=== PATIENT | female | born 1985 | race Caucasian/White ===

== ENCOUNTER 2021-02-11 10:09 | Emergency (ER) | payer MEDICAID, SELFPAY ==
[2021-02-11 10:15] VITALS: BP 122/85; PULSE 83; RESP 18; TEMP 36.8; O2SAT 99; BMI 21.7
--- NOTE | 2021-02-11 10:52 | CT_ITS ---
WS: [id number] CT ABDOMEN PELVIS TECHNIQUE: Contrast-enhanced CT of the abdomen and pelvis with coronal and sagittal reformatted image s. CLINICAL INFORMATION: right side abdominal pain with nausea COMPARISON: None. DLP: 771.[address] scans at [facility] use at least one of these dose optimization techniques: automat ed exposure control; mA and/or kV adjustment per patient size (includes targeted exams where dose is matched to clinical indication); or iterative reconstruction. FINDINGS: Lung bases are well aerated. Mild diffuse fatty infiltration of the liver. Normal portal vein and spl enic vein. Normal gallbladder. Normal spleen. Normal GE junction. Normal pancreas. Adrenal glands are normal. Normal renal parenchymal enhancement. No hydronephrosis. Urine distended bladder. No abdominal or pelvic lymphadenopathy. Small bilateral ovarian follicles wi th peripheral enhancing left corpus luteum cyst measuring 1.5 CM. Normal sigmoid colon. No evidence o f small or large bowel obstruction. Small fat-containing umbilical hernia. CT/CT abdomen pelvis w con* [id number] IMPRESSION: 1. Prior postoperative hysterectomy and appendectomy. 2. Multifollicular ovaries bilaterally. 1.5 cm peripheral enhancing left corpu s luteum cyst. 3. Tiny amount of free fluid in the pelvis. 4. Mild diffuse fatty infiltration the liver. No hydronephrosis. 5. Normal caliber abdominal aorta. 6. No other significant findings.
--- NOTE | 2021-02-11 10:56 | ED_ITS ---
HPI - General Adult General: Chief complaint: General Medical Stated complaint: Pains in Right Side of ABD, Cough, Sore Throat Time Seen by Provider: 02/11/21 10:22 History of Present Illness: HPI narrative: Patient is a 35-year-old female comes to the ED with right sided abdominal pain. Patient says symptoms started 3 days ago. Patient is currently at [facility] getting treatment and she was seen by one of the treatment facility physicians and they wanted patient to come to the ED for some labs and abdominal imaging. Patient says she has had nausea and vomited once since the start of symptoms. Denies any diarrhea or constipation. Her abdominal pain is on the right side and radiates around to her right lower back. She rates her pain a 7 out of 10. She says the symptoms to get worse after she eats. Associated symptoms: Deny chest pain, dyspnea, headache(s), nausea, rash, palpitations or vomiting Review of Systems Const: Reports: change in appetite (decreased); Denies: fever(s), chills or fatigue Eyes: Denies: change in vision or eye discomfort ENMT: Denies: throat pain, odynophagia, nasal discharge or nasal congestion Card: Denies: chest pain, palpitations, edema, swelling of feet/ankles, dyspnea on exertion or orthopnea Resp: Denies: dyspnea, productive cough or non-productive cough GI: Reports: abdominal pain; Denies: nausea, vomiting, diarrhea, constipation or hematochezia : Reports: flank pain; Denies: dysuria or hematuria Musc: Denies: neck pain, back pain or extremity swelling Skin/Breast: Denies: rash or new lesions Neuro: Denies: headache(s), numbness in extremities or weakness in extremities Physical Exam Const: COMMON NORMALS: no acute distress, patient oriented x3 and alert GENERAL APPEARANCE: cooperative and comfortable HENMT: COMMON NORMALS: normocephalic HEAD & SCALP: normocephalic MOUTH: Normal oral and palatal mucosa present THROAT: posterior oropharynx normal and uvula midline Neck/C-Spine: COMMON NORMALS: supple GENERAL: Yes normal visual inspection Resp: COMMON NORMALS: normal respiratory effort, No retractions, No use of accessory muscles and clear to auscultation bilaterally AUSCULTATION: clear to auscultation bilaterally Cardio: COMMON NORMALS: regular rate, regular rhythm, S1 normal heart sound present, S2 normal heart sound present, No gallops present (Cardio), No clicks present (Cardio), No murmurs present (Cardio) and Peripheral pulses 2+ throughout RATE: regular rate RHYTHM: regular rhythm HEART SOUNDS: S1 normal heart sound present and S2 normal heart sound present PERIPHERAL PULSES: Peripheral pulses 2+ throughout GI: COMMON NORMALS: Normal to inspection, nondistended, normoactive bowel sounds present, Soft to palpation and no masses PALPATION: Yes Soft to palpation and Yes Tenderness to palpation present (GI) (Patient has generalized tenderness of right upper and right lower quadrant ) Details: RLQ and RUQ : BLADDER/KIDNEY EXAM: Yes CVA tenderness Back/Pelvis: GENERAL BACK: Yes CVA tenderness CVA tenderness: right Extremity: COMMON NORMALS: normal to inspection Neuro: COMMON NORMALS: patient oriented x3 and moves all extremities SENSORIUM/ORIENTATION: Yes alert Skin: GENERAL SKIN EXAM: dry skin Course Vital Signs: Vital signs: Vital Signs Temperature 98.2 F 02/11/21 10:15 Pulse Rate 73 02/11/21 13:03 Respiratory Rate 14 02/11/21 13:09 Blood Pressure 119/93 02/11/21 13:03 Pulse Oximetry 100 02/11/21 13:09 MDM - General Adult MDM Narrative: Medical decision making narrative: Patient is a 35-year-old female comes to the ED with right sided abdominal pain. Patient appears nontoxic and in no acute distress. Is some mild generalized tenderness of the right side of her abdomen. Labs were unremarkable. CT of abdomen pelvis showed no acute findings. Patient was given IV fluids, Reglan and IV pain meds and her symptoms were controlled. Patient was diagnosed with abdominal pain and discharged home with a prescription for Reglan. Return to ED precautions given. Follow-up with PCP in 7 to 10 days for reevaluation. Patient understood agree with plan. Lab Data: Attestation: I reviewed the patient's lab results. Labs: Lab Results 02/11/21 02/11/21 02/11/21 Range/Units 10:44 10:44 10:44 WBC 7.2 (4.0-10.0) 10^3/ uL RBC 4.03 L (4.1-5.3) 10^6/u L Hgb 12.6 (11.5-15.3) g/dL Hct 39.0 (37.0-47.0) % MCV 96.8 (81-99) fL MCH 31.3 (28.0-34.0) pg MCHC 32.3 (30.0-36.0) g/dL RDW 12.9 (12.1-15.1) % Plt Count 250 (130-400) 10^3/c mm MPV 10.1 (7.4-10.4) fL Neut % (Auto) 66.6 % Lymph % (Auto) 22.5 % [place] % (Auto) 7.7 % Eos % (Auto) 2.2 % Baso % (Auto) 0.6 % Neut # (Auto) 4.78 (1.8-7.7) 10^3/u L Lymph # (Auto) 1.6 (0.8-4.8) 10^3/u L [place] # (Auto) 0.6 (0.2-0.9) 10^3/u L Eos # (Auto) 0.2 (0.0-0.8) 10^3/u L Baso # (Auto) 0.0 (0.0-0.1) 10^3/u L Nucleated RBC % (a uto) 0 % Nucleated RBCs # 0.0 /100WBC Sodium 137 (136-145) mmol/L Potassium 4.3 (3.5-5.1) mmol/L Chloride 102 (98-107) mmol/L Carbon Dioxide 27 (22-29) mmol/L Anion Gap 12.3 (5-19) BUN 15 (6-20) mg/dL Creatinine 0.6 (0.5-0.9) mg/dL GFR Calculation 113.8 (90-130) mL/min Glucose 76 (65-115) mg/dL Calculated Osmolal ity 284 L (285-295) mOsm/k g Calcium 8.9 (8.5-10.5) mg/dL Total Bilirubin 0.3 (0.15-1.2) mg/dL AST 79 H (0-32) U/L ALT 197 H (0-33) U/L Alkaline Phosphata se 66 (35-105) IU/L Total Protein 7.2 (6.6-8.7) g/dL Albumin 4.2 (3.5-5.2) g/dL Globulin 3.0 (1.3-4.6) g/dL Lipase 22 (13-60) U/L HCG, Qual Negative (Negative) Urine Color (Yellow) Urine Appearance (CLEAR) Urine pH (5-7) Ur Specific Gravit y (1.005-1.030) Urine Protein (Negative) Urine Glucose (UA) (Normal) Urine Ketones (Negative) Urine Blood (Negative) Urine Nitrate (Negative) Urine Bilirubin (Negative) Urine Urobilinogen (Negative) mg/dL Ur Leukocyte Sherice ase (Negative) Urine RBC (0-2) /hpf Urine WBC (0-5) /hpf Ur Squamous Epith Cells (0-5) /hpf Amorphous Sediment Urine Bacteria (NONE) /hpf Hepatitis A IgM Ab (Nonreactive) Hep Bs Antigen (Nonreactive) Hep Bs Antibody (11.5-1000) Hep B Core Total A b (Nonreactive) Hepatitis C Antibo dy (Nonreactive) 02/11/21 02/11/21 Range/Units 10:44 10:50 WBC (4.0-10.0) 10^3/ uL RBC (4.1-5.3) 10^6/u L Hgb (11.5-15.3) g/dL Hct (37.0-47.0) % MCV (81-99) fL MCH (28.0-34.0) pg MCHC (30.0-36.0) g/dL RDW (12.1-15.1) % Plt Count (130-400) 10^3/c mm MPV (7.4-10.4) fL Neut % (Auto) % Lymph % (Auto) % [place] % (Auto) % Eos % (Auto) % Baso % (Auto) % Neut # (Auto) (1.8-7.7) 10^3/u L Lymph # (Auto) (0.8-4.8) 10^3/u L [place] # (Auto) (0.2-0.9) 10^3/u L Eos # (Auto) (0.0-0.8) 10^3/u L Baso # (Auto) (0.0-0.1) 10^3/u L Nucleated RBC % (a uto) % Nucleated RBCs # /100WBC Sodium (136-145) mmol/L Potassium (3.5-5.1) mmol/L Chloride (98-107) mmol/L Carbon Dioxide (22-29) mmol/L Anion Gap (5-19) BUN (6-20) mg/dL Creatinine (0.5-0.9) mg/dL GFR Calculation (90-130) mL/min Glucose (65-115) mg/dL Calculated Osmolal ity (285-295) mOsm/k g Calcium (8.5-10.5) mg/dL Total Bilirubin (0.15-1.2) mg/dL AST (0-32) U/L ALT (0-33) U/L Alkaline Phosphata se (35-105) IU/L Total Protein (6.6-8.7) g/dL Albumin (3.5-5.2) g/dL Globulin (1.3-4.6) g/dL Lipase (13-60) U/L HCG, Qual (Negative) Urine Color Yellow (Yellow) Urine Appearance Clear (CLEAR) Urine pH 6 (5-7) Ur Specific Gravit y 1.015 (1.005-1.030) Urine Protein Neg (Negative) Urine Glucose (UA) Norm (Normal) Urine Ketones Negative (Negative) Urine Blood Neg (Negative) Urine Nitrate Negative (Negative) Urine Bilirubin Neg (Negative) Urine Urobilinogen Norm (Negative) mg/dL Ur Leukocyte Sherice ase Negative (Negative) Urine RBC None (0-2) /hpf Urine WBC None (0-5) /hpf Ur Squamous Epith Cells 0-4 H (0-5) /hpf Amorphous Sediment Not Reportable Urine Bacteria None (NONE) /hpf Hepatitis A IgM Ab Non-reactive (Nonreactive) Hep Bs Antigen Non-reactive (Nonreactive) Hep Bs Antibody 3.5 L (11.5-1000) Hep B Core Total A b Non-reactive (Nonreactive) Hepatitis C Antibo dy Reactive H (Nonreactive) Imaging Data^: CT Abd/Pel: Attestation: I personally reviewed and interpreted this imaging study as follows: Radiologist's impression: [address] [address] [address] Scan Report Signed Patient: Constance Cox Unit #: [id number] : 1985 Age/Sex: 35 / F ADM Date: 02/11/21 Loc: ER Room/Bed: Attending Dr: Ordering Provider/Ordering MD: Kimo Appiah Date of Service: 02/11/21 Procedure(s): CT abdomen pelvis w con* [id number] Accession Number(s): [id number] Report Number: [id number] WS: [id number] CT ABDOMEN PELVIS TECHNIQUE: Contrast-enhanced CT of the abdomen and pelvis with coronal and sagittal reformatted images. CLINICAL INFORMATION: right side abdominal pain with nausea COMPARISON: None. DLP: 771.[address] scans at [facility] use at least one of these dose optimization techniques: automated exposure control; mA and/or kV adjustment per patient size (includes targeted exams where dose is matched to clinical indication); or iterative reconstruction. FINDINGS: Lung bases are well aerated. Mild diffuse fatty infiltration of the liver. Normal portal vein and splenic vein. Normal gallbladder. Normal spleen. Normal GE junction. Normal pancreas. Adrenal glands are normal. Normal renal parenchymal enhancement. No hydronephrosis. Urine distended bladder. No abdominal or pelvic lymphadenopathy. Small bilateral ovarian follicles with peripheral enhancing left corpus luteum cyst measuring 1.5 CM. Normal sigmoid colon. No evidence of small or large bowel obstruction. Small fat-containing umbilical hernia. CT/CT abdomen pelvis w con* [id number] IMPRESSION: 1. Prior postoperative hysterectomy and appendectomy. 2. Multifollicular ovaries bilaterally. 1.5 cm peripheral enhancing left corpus luteum cyst. 3. Tiny amount of free fluid in the pelvis. 4. Mild diffuse fatty infiltration the liver. No hydronephrosis. 5. Normal caliber abdominal aorta. 6. No other significant findings. Dictated By: Tyler Kline MD Signed By: Tyler Kline MD Signed Date/Time: 02/11/21 1222 DD/ 1211 Discharge Plan Discharge Patient Disposition: Home Clinical Impression: Abdominal pain Qualifiers: Abdominal location: right lower quadrant Qualified Code(s): R10.31 - Right lower quadrant pain Condition: Stable Prescriptions: New Reglan 10 mg tablet 10 mg PO Q6H PRN (Reason: nausea and vomiting) Qty: 20 RF: 0 Discharge Orders: Discharge ED (Routine); Ordered 02/11/21 Ordered By: Kimo Appiah Discharge Diet: Advance as tolerated and Clear Liquid Discharge Activity: Increase activity as tolerated Patient Instructions: Abdominal Pain (ED) Activity Restrictions/Additional Instructions: Follow-up with medical provider as directed. Take medications as prescribed. Return to the ER or your medical provider if condition worsens. Please read and understand discharge instructions. Thank you for choosing [facility] for your healthcare needs today. Please realize this is an emergency room and that we are providing you with a medical screening exam and this may not be complete and all inclusive of all the testing and or work up that you may need to determine your ailment or severity of your illness. It is very important that you follow up as instructed or that you return to the Emergency Department should you have concerns or if your condition changes or worsens in any way. Coding Level of Care Code ED [employer] for Uday Bryant Exam Comprehensive
[2021-02-11 11:06] LABS: Basophils % 0.6 %; Eosinophils # 0.2 10^3/uL (0.0-0.8); Eosinophils % 2.2 %; Hemoglobin 12.6 g/dL (11.5-15.3); Lymphocytes # 1.6 10^3/uL (0.8-4.8); Lymphocytes % 22.5 %; Mean Corpuscular HGB Conc 32.3 g/dL (30.0-36.0); Mean Corpuscular Hemoglobin 31.3 pg (28.0-34.0); Mean Corpuscular Volume 96.8 fL (81-99); Mean Platelet Volume 10.1 fL (7.4-10.4); Monocytes # 0.6 10^3/uL (0.2-0.9); Monocytes % 7.7 %; Neutrophils # 4.78 10^3/uL (1.8-7.7); Neutrophils % 66.6 %; Nucleated Red Blood Cells % 0 %; Platelet Count 250 10^3/cmm (130-400); Red Blood Count 4.03 10^6/uL (4.1-5.3); Red Cell Distribution Width 12.9 % (12.1-15.1); White Blood Count 7.2 10^3/uL (4.0-10.0)
[2021-02-11 11:13] LABS: HCG, Serum Qual Negative (Negative)
[2021-02-11 11:16] LABS: Bilirubin Urine Neg (Negative); Blood Urine Neg (Negative); Glucose Urine UA Norm (Normal); Ketones Urine Negative (Negative); Leukocyte Esterase Urine Negative (Negative); Nitrate Urine Negative (Negative); Protein Urine Neg (Negative); Specific Gravity, Urine 1.015 (1.005-1.030); Urine Appearance Clear (CLEAR); Urine Color Yellow (Yellow); Urobilinogen Urine Norm (Negative); pH Urine 6 (5-7)
[2021-02-11 11:20] LABS: Add Urine Culture? No; Squamous Epithelial Cell Urine 0-4 /hpf (0-5)
[2021-02-11 11:26] LABS: Alanine Aminotransferase 197 U/L (0-33); Albumin Level 4.2 g/dL (3.5-5.2); Alkaline Phosphatase 66 IU/L (35-105); Anion Gap 12.3 (5-19); Aspartate Amino Transferase 79 U/L (0-32); Blood Urea Nitrogen 15 mg/dL (6-20); Calcium 8.9 mg/dL (8.5-10.5); Carbon Dioxide 27 mmol/L (22-29); Chloride 102 mmol/L (98-107); Glomerular Filtration Rate 113.8 mL/min (90-130); Glucose 76 mg/dL (65-115); Lipase 22 U/L (13-60); Osmolality Calculated 284 mOsm/kg (285-295); Potassium 4.3 mmol/L (3.5-5.1); Sodium 137 mmol/L (136-145); Total Bilirubin 0.3 mg/dL (0.15-1.2); Total Protein 7.2 g/dL (6.6-8.7)
[2021-02-11] MEDS: sodium chloride 0.9% 1,000 ML 999 ML IV (11:33)
[2021-02-11 11:35] VITALS: RESP 16; O2SAT 100
[2021-02-11] MEDS: morphine 4 mg/mL SDV 1 mL IVP (11:35)
[2021-02-11] MEDS: ondansetron 2 mg/ML SDV 2 mL 4 MG IVP (11:35)
[2021-02-11 11:37] VITALS: BP 137/93; PULSE 83; RESP 14; O2SAT 100
[2021-02-11] MEDS: iohexol 300 mg/mL 100 mL Btl IV (12:07)
[2021-02-11 13:03] VITALS: BP 119/93; PULSE 73; RESP 14; O2SAT 100
[2021-02-11 13:04] LABS: Hepatitis A Antibody IgM Non-Reactive (Nonreactive); Hepatitis B Core AB, Total Non-Reactive (Nonreactive); Hepatitis B Surface AB 3.5 (11.5-1000); Hepatitis B Surface Antigen Non-Reactive (Nonreactive); Hepatitis C Virus Antibody Reactive (Nonreactive)
[2021-02-11 13:09] VITALS: RESP 14; O2SAT 100
[2021-02-11] MEDS: HYDROmorphone 1 mg/mL INJ 1 mL IVP (13:09)
[2021-02-11] MEDS: metoclopramide 5 mg/mL SDV 2 mL 10 MG IVP (13:10)
== END 2021-02-11 13:31 | disposition home or self-care (01) ==
PROVIDERS: Emergency Provider Physician Assistant
DX: R10.31 Right lower quadrant pain (principal)
CPT/HCPCS: 74177; 80053; 81001; 83690; 84703; 85025; 86705; 86706; 86709; 86803; 87340; 96361; 96374; 96375; 99284; J1170; J2270; J2405; J2765; J7030; Q9967

== ENCOUNTER 2021-02-12 22:57 | Emergency (ER) | payer MEDICAID, SELFPAY ==
[2021-02-12 22:59] VITALS: BP 113/73; PULSE 90; RESP 14; TEMP 36.7; O2SAT 100; BMI 21.7
--- NOTE | 2021-02-12 23:18 | ED_ITS ---
HPI - Syncope General: Chief Complaint: Syncope Stated Complaint: SYNCOPE Time Seen by Provider: 02/12/21 23:00 History of Present Illness: HPI narrative: This patient is a 35-year-old female who presents to the emergency department stating her blood pressure d ropped. Patient states she takes BuSpar and Seroquel regularly. Patient states she got up to get some chocolate milk and her blood pressure dropped down in the 60s. Had a syncopal episode. Patient appears to be medicated. Blood pressure at this time appears to be stable blood pressure 113/73 pulse ox 100% on room air. Will do medical evaluation treat MD complaint: almost passed out Associated symptoms: Deny abdominal pain, chest pain, fever(s), headache(s), lightheadedness or nausea Review of Systems General: Reports: 10 or more systems reviewed and unremarkable except in HPI and below Const: Denies: fever(s), chills, body aches or fatigue Eyes: Denies: change in vision or blurry vision ENMT: Denies: throat pain, hoarseness or mouth pain Card: Reports: pre-syncope; Denies: chest pain, palpitations, irregular heart rhythm, edema, swelling of feet/ankles or lightheadedness Resp: Denies: dyspnea, productive cough, non-productive cough, wheezing or pain on inspiration GI: Denies: abdominal pain, nausea or vomiting : Denies: flank pain, difficulty voiding, dysuria, urinary frequency, urinary urgency or urinary hesitancy Musc: Denies: neck pain, back pain, extremity pain, extremity swelling, joint pain, joint swelling, joint redness, joint warmth or limited range of motion Skin/Breast: Denies: rash, pruritus, erythema or skin tenderness Neuro: Denies: headache(s), numbness in extremities or weakness in extremities Psych: Denies: anxiety or depression Physical Exam Const: COMMON NORMALS: no acute distress, average body habitus, patient oriented x3, no limitations, healthy appearing, alert and well nourished HENMT: COMMON NORMALS: normocephalic, atraumatic, hearing grossly normal bilaterally, external ears normal, EAC's normal, TM's normal bilaterally, Normal external nose present, Normal nasal mucous membranes and turbinates present, moist oral mucous membranes, oropharynx normal, dentition normal and gingiva normal HEAD & SCALP: normocephalic and atraumatic NOSE: Normal external nose present and Normal nasal mucous membranes and turbinates present EXTERNAL EAR: Yes external ears normal EXTERNAL AUDITORY CANAL: EAC's normal TYMPANIC MEMBRANE: TM's normal bilaterally Neck/C-Spine: COMMON NORMALS: full ROM, no lymphadenopathy, supple, no meningeal signs, no JVD, Thyroid normal and No carotid bruits THYROID: Thyroid normal Chest: COMMONS NORMALS: normal inspection of the chest, normal palpation of entire chest wall, normal inspection of the breasts and normal palpation of the breasts Breast/axilla inspection: Yes normal inspection of the breasts BREAST/AXILLA PALPATION: Yes normal palpation of the breasts Resp: COMMON NORMALS: normal respiratory effort, No retractions, No use of accessory muscles, clear to auscultation bilaterally and percussion normal AUSCULTATION: clear to auscultation bilaterally PERCUSSION: percussion normal Cardio: COMMON NORMALS: no JVD, regular rate, regular rhythm, S1 normal heart sound present, S2 normal heart sound present, No gallops present (Cardio), No clicks present (Cardio), No murmurs present (Cardio), No rub (Cardio) and Peripheral pulses 2+ throughout RATE: regular rate RHYTHM: regular rhythm HEART SOUNDS: S1 normal heart sound present and S2 normal heart sound present PERIPHERAL PULSES: Peripheral pulses 2+ throughout GI: COMMON NORMALS: Normal to inspection, nondistended, normoactive bowel sounds present, Soft to palpation, non-tender, No hepatosplenomegaly present, no masses and no bruits PALPATION: Yes Soft to palpation and Yes No hepatosplenomegaly present Back/Pelvis: COMMON NORMALS: thoracic and lumbar spine normal to inspection, no thoracic nor lumbar tenderness, thoraco-lumbar ROM normal and straight leg raise negative bilaterally Extremity: COMMON NORMALS: normal to inspection, full ROM, capillary refill normal, no joint enlargement, no clubbing, cyanosis or edema, no calf tenderness and no pedal edema Neuro: COMMON NORMALS: patient oriented x3 SENSORIUM/ORIENTATION: Yes alert MENINGEAL SIGNS: Yes no meningeal signs Course Reevaluation(s): Reevaluation #1: Negative evaluation in the emergency department any acute findings. Patient's orthostatic vitals appear to be normal after IV fluid bolus. Patient be discharged home. Time: 00:54 Vital Signs: Vital signs: Vital Signs Temperature 98.1 F 02/12/21 22:59 Pulse Rate 88 02/13/21 00:39 Respiratory Rate 16 02/13/21 00:34 Blood Pressure 100/55 02/13/21 00:39 Pulse Oximetry 100 02/13/21 00:34 MDM - Syncope MDM Narrative: Medical decision making narrative: Negative evaluation for acute findings. Patient appears to be more stable after IV fluid bolus. Probably suffered from orthostasis. Patient is to encourage p.o. fluids and follow-up with PCP Lab Data: Labs: Lab Results 02/12/21 02/12/21 02/12/21 Range/Units 23:31 23:31 23:51 WBC 8.3 (4.0-10.0) 10^3/ uL RBC 3.76 L (4.1-5.3) 10^6/u L Hgb 11.9 (11.5-15.3) g/dL Hct 35.9 L (37.0-47.0) % MCV 95.5 (81-99) fL MCH 31.6 (28.0-34.0) pg MCHC 33.1 (30.0-36.0) g/dL RDW 12.5 (12.1-15.1) % Plt Count 234 (130-400) 10^3/c mm MPV 10.1 (7.4-10.4) fL Neut % (Auto) 68.6 % Lymph % (Auto) 21.5 % [place] % (Auto) 7.9 % Eos % (Auto) 1.2 % Baso % (Auto) 0.4 % Neut # (Auto) 5.71 (1.8-7.7) 10^3/u L Lymph # (Auto) 1.8 (0.8-4.8) 10^3/u L [place] # (Auto) 0.7 (0.2-0.9) 10^3/u L Eos # (Auto) 0.1 (0.0-0.8) 10^3/u L Baso # (Auto) 0.0 (0.0-0.1) 10^3/u L Nucleated RBC % (a uto) 0 % Nucleated RBCs # 0.0 /100WBC Sodium (136-145) mmol/L Potassium (3.5-5.1) mmol/L Chloride (98-107) mmol/L Carbon Dioxide (22-29) mmol/L Anion Gap (5-19) BUN (6-20) mg/dL Creatinine (0.5-0.9) mg/dL GFR Calculation (90-130) mL/min Glucose (65-115) mg/dL Calculated Osmolal ity (285-295) mOsm/k g Calcium (8.5-10.5) mg/dL Total Bilirubin (0.15-1.2) mg/dL AST (0-32) U/L ALT (0-33) U/L Alkaline Phosphata se (35-105) IU/L Total Protein (6.6-8.7) g/dL Albumin (3.5-5.2) g/dL Globulin (1.3-4.6) g/dL Ser , [place] i-Qnt mIU/mL Urine Color Yellow (Yellow) Urine Appearance Clear (CLEAR) Urine pH 5 (5-7) Ur Specific Gravit y 1.020 (1.005-1.030) Urine Protein Neg (Negative) Urine Glucose (UA) Norm (Normal) Urine Ketones Negative (Negative) Urine Blood Neg (Negative) Urine Nitrate Negative (Negative) Urine Bilirubin Neg (Negative) Urine Urobilinogen Norm (Negative) mg/dL Ur Leukocyte Sherice ase Negative (Negative) Urine Opiates Scre en Negative (Negative) ng/mL Ur Barbiturates Sc reen Negative (Negative) ng/mL Ur Phencyclidine S crn Negative (Negative) ng/mL Ur Amphetamines Sc reen Negative (Negative) ng/mL U Benzodiazepines Scrn Negative (Negative) ng/mL Urine Cocaine Scre en Negative (Negative) ng/mL U Marijuana (THC) Screen Negative (Negative) ng/mL Ethyl Alcohol (0-10) mg/dL 02/12/21 Range/Units 23:51 WBC (4.0-10.0) 10^3/ uL RBC (4.1-5.3) 10^6/u L Hgb (11.5-15.3) g/dL Hct (37.0-47.0) % MCV (81-99) fL MCH (28.0-34.0) pg MCHC (30.0-36.0) g/dL RDW (12.1-15.1) % Plt Count (130-400) 10^3/c mm MPV (7.4-10.4) fL Neut % (Auto) % Lymph % (Auto) % [place] % (Auto) % Eos % (Auto) % Baso % (Auto) % Neut # (Auto) (1.8-7.7) 10^3/u L Lymph # (Auto) (0.8-4.8) 10^3/u L [place] # (Auto) (0.2-0.9) 10^3/u L Eos # (Auto) (0.0-0.8) 10^3/u L Baso # (Auto) (0.0-0.1) 10^3/u L Nucleated RBC % (a uto) % Nucleated RBCs # /100WBC Sodium 135 L (136-145) mmol/L Potassium 3.8 (3.5-5.1) mmol/L Chloride 100 (98-107) mmol/L Carbon Dioxide 25 (22-29) mmol/L Anion Gap 13.8 (5-19) BUN 24 H (6-20) mg/dL Creatinine 0.8 (0.5-0.9) mg/dL GFR Calculation 81.6 L (90-130) mL/min Glucose 130 H (65-115) mg/dL Calculated Osmolal ity 286 (285-295) mOsm/k g Calcium 9.3 (8.5-10.5) mg/dL Total Bilirubin 0.2 (0.15-1.2) mg/dL AST 82 H (0-32) U/L ALT 199 H (0-33) U/L Alkaline Phosphata se 68 (35-105) IU/L Total Protein 6.9 (6.6-8.7) g/dL Albumin 4.0 (3.5-5.2) g/dL Globulin 2.9 (1.3-4.6) g/dL Ser , [place] i-Qnt 0.50 mIU/mL Urine Color (Yellow) Urine Appearance (CLEAR) Urine pH (5-7) Ur Specific Gravit y (1.005-1.030) Urine Protein (Negative) Urine Glucose (UA) (Normal) Urine Ketones (Negative) Urine Blood (Negative) Urine Nitrate (Negative) Urine Bilirubin (Negative) Urine Urobilinogen (Negative) mg/dL Ur Leukocyte Sherice ase (Negative) Urine Opiates Scre en (Negative) ng/mL Ur Barbiturates Sc reen (Negative) ng/mL Ur Phencyclidine S crn (Negative) ng/mL Ur Amphetamines Sc reen (Negative) ng/mL U Benzodiazepines Scrn (Negative) ng/mL Urine Cocaine Scre en (Negative) ng/mL U Marijuana (THC) Screen (Negative) ng/mL Ethyl Alcohol < 10 (0-10) mg/dL EKG Data^: EKG 1: Attestation: I personally reviewed and interpreted this EKG as follows: EKG interpretation date: 02/12/21 EKG interpretation time: 23:06 Prior EKG tracings: not available for review Interpretation: Sinus rhythm with borderline right axis deviation nonspecific T wave changes heart rate 81 Discharge Plan Discharge Patient Disposition: Home Clinical Impression: Vasovagal syncope Condition: Stable Prescriptions: No Action Reglan 10 mg tablet 10 mg PO Q6H PRN (Reason: nausea and vomiting) Qty: 20 RF: 0 Discharge Orders: Discharge ED (Routine); Ordered 02/13/21 Ordered By: Moy Sahu Discharge Diet: Advance as tolerated Discharge Activity: Resume usual activity Patient Instructions: Opioid Safety Activity Restrictions/Additional Instructions: Encourage p.o. fluids. Transition slowly from lying to sitting to standing. Due to dizziness issues. Follow-up with your primary care physician in 2 to 3 days as needed. Coding Level of Care Code ED Signals Intelligence Superintendent for Uday Fwd Exam Comprehensive
[2021-02-12 23:41] VITALS: BP 119/71; PULSE 88; RESP 20; O2SAT 100
[2021-02-12 23:43] LABS: Add Urine Microscopic? NO; Charge for UA Resulting for Rev
[2021-02-12 23:44] LABS: Bilirubin Urine Neg (Negative); Blood Urine Neg (Negative); Glucose Urine UA Norm (Normal); Ketones Urine Negative (Negative); Leukocyte Esterase Urine Negative (Negative); Nitrate Urine Negative (Negative); Protein Urine Neg (Negative); Urine Appearance Clear (CLEAR); Urine Color Yellow (Yellow); Urobilinogen Urine Norm (Negative); pH Urine 5 (5-7)
[2021-02-12] MEDS: sodium chloride 0.9% 1,000 ML 999 ML IV (23:44)
[2021-02-12 23:53] LABS: Amphetamines Screen Urine Negative (Negative); Barbiturates Screen Urine Negative (Negative); Benzodiazepines Screen Urine Negative (Negative); Cocaine Screen Urine Negative (Negative); Opiate Screen Urine Negative (Negative); PCP Screen Urine Negative (Negative); THC Screen Urine Negative (Negative)
[2021-02-12 23:58] LABS: Basophils % 0.4 %; Eosinophils # 0.1 10^3/uL (0.0-0.8); Eosinophils % 1.2 %; Hematocrit 35.9 % (37.0-47.0); Hemoglobin 11.9 g/dL (11.5-15.3); Lymphocytes # 1.8 10^3/uL (0.8-4.8); Lymphocytes % 21.5 %; Mean Corpuscular HGB Conc 33.1 g/dL (30.0-36.0); Mean Corpuscular Hemoglobin 31.6 pg (28.0-34.0); Mean Corpuscular Volume 95.5 fL (81-99); Mean Platelet Volume 10.1 fL (7.4-10.4); Monocytes # 0.7 10^3/uL (0.2-0.9); Monocytes % 7.9 %; Neutrophils # 5.71 10^3/uL (1.8-7.7); Neutrophils % 68.6 %; Nucleated Red Blood Cells % 0 %; Platelet Count 234 10^3/cmm (130-400); Red Blood Count 3.76 10^6/uL (4.1-5.3); Red Cell Distribution Width 12.5 % (12.1-15.1); White Blood Count 8.3 10^3/uL (4.0-10.0)
[2021-02-13 00:33] LABS: Alanine Aminotransferase 199 U/L (0-33); Alkaline Phosphatase 68 IU/L (35-105); Anion Gap 13.8 (5-19); Aspartate Amino Transferase 82 U/L (0-32); Blood Urea Nitrogen 24 mg/dL (6-20); Calcium 9.3 mg/dL (8.5-10.5); Carbon Dioxide 25 mmol/L (22-29); Chloride 100 mmol/L (98-107); Globulin 2.9 g/dL (1.3-4.6); Glomerular Filtration Rate 81.6 mL/min (90-130); Glucose 130 mg/dL (65-115); Osmolality Calculated 286 mOsm/kg (285-295); Potassium 3.8 mmol/L (3.5-5.1); Sodium 135 mmol/L (136-145); Total Bilirubin 0.2 mg/dL (0.15-1.2); Total Protein 6.9 g/dL (6.6-8.7)
[2021-02-13 00:34] VITALS: BP 111/71; PULSE 100; RESP 16; O2SAT 100
[2021-02-13 00:37] LABS: Alcohol Level < 10 mg/dL (0-10)
[2021-02-13 00:39] VITALS: BP 100/55; BP 111/71; BP 122/75; PULSE 87; PULSE 88; PULSE 93
[2021-02-13 01:13] VITALS: BP 94/57; PULSE 92; RESP 18; O2SAT 96
== END 2021-02-13 01:14 | disposition home or self-care (01) ==
PROVIDERS: Emergency Provider Emergency Medicine
DX: R55 Syncope and collapse (principal)
CPT/HCPCS: 80053; 80306; 80307; 81003; 84702; 85025; 96360; 99283; J7030

== ENCOUNTER 2024-03-04 20:44 | Emergency (ER) | payer MEDICAID, SELFPAY ==
[2024-03-04 20:48] VITALS: BP 144/100; PULSE 77; RESP 16; TEMP 37; O2SAT 100
--- NOTE | 2024-03-04 21:02 | ED_ITS ---
HPI - Seizure 2 General: Chief Complaint: Seizure Stated Complaint: possible seizure Time Seen by Provider: 03/04/24 20:51 Source: patient Mode of arrival: ambulatory Limitations: no limitations History of Present Illness: HPI Narrative: 38-year-old female who has a history of seizures she is currently incarcerated states she has not been taking her Keppra. Had a seizure today she did not hit her head she is back to her baseline she has no complaints at this time. She denies any vomiting diarrhea fever. She denies any headache. Associated symptoms: Deny chest pain, chills or fever(s) Review of Systems 2 Const: Denies: fever(s), chills, body aches or change in appetite ENMT: Denies: throat pain or dental pain Card: Denies: chest pain Resp: Denies: dyspnea GI: Denies: abdominal pain, nausea, vomiting or diarrhea : Denies: dysuria Musc: Denies: neck pain or back pain Skin/Breast: Denies: rash Neuro: Reports: seizure-like activity; Denies: headache(s) Physical Exam 2 Const: COMMON NORMALS: no acute distress, patient oriented x3 and healthy appearing HENMT: COMMON NORMALS: normocephalic and atraumatic HEAD & SCALP: n ormocephalic and atraumatic Eye: COMMON NORMALS: Equal, round and reactive pupils present and EOMs intact bilaterally PUPIL: Yes Equal, round and reactive pupils present Neck/C-Spine: COMMON NORMALS: full ROM and supple Chest: COMMONS NORMALS: normal inspection of the chest and normal palpation of entire chest wall Resp: COMMON NORMALS: normal respiratory effort, No retractions, No use of accessory muscles and clear to auscultation bilaterally AUSCULTATION: clear to auscultation bilaterally Cardio: COMMON NORMALS: regular rate, regular rhythm and No murmurs present (Cardio) RATE: regular rate RHYTHM: regular rhythm GI: COMMON NORMALS: Normal to inspection, nondistended, normoactive bowel sounds present, Soft to palpation, non-tender and no masses PALPATION: Yes Soft to palpation Extremity: COMMON NORMALS: normal to inspection and full ROM Neuro: COMMON NORMALS: patient oriented x3, moves all extremities and no focal motor deficits Psych: COMMON NORMALS: mental status grossly normal, Normal thought process present and cooperative THOUGHT PROCESS: Normal thought process present Skin: COMMON NORMALS: no rashes or lesions noted and no wounds GENERAL SKIN EXAM: no rashes or lesions noted Course 2 Vital Signs: Vital signs: Vital Signs Temperature 98.6 F 03/04/24 20:48 Pulse Rate 74 03/04/24 21:38 Respiratory Rate 16 03/04/24 21:38 Blood Pressure 114/93 03/04/24 21:38 Pulse Oximetry 100 03/04/24 21:38 Oxygen Delivery Me thod Room Air 03/04/24 21:38 MDM - Seizure MDM Narrative Medical decision making narrative: Patient presents here with likely seizure she had no head injury she is well- appearing here blood work here is all normal did give her Keppra here we will prescribe her Keppra she is to follow-up return if worsening she understands agrees plan Lab Data 03/04/24 21:09 03/04/24 21:09 Labs: Laboratory Results WBC 10.02 10^3/uL (3.29-11.43) 03/04/24 21:09 RBC 4.53 10^6/uL (3.85-5.65) 03/04/24 21:09 Hgb 14.10 g/dL (11.27-16.99) 03/04/24 21:09 Hct 41.5 % (36-47) 03/04/24 21:09 MCV 91.6 fl (85-98) 03/04/24 21:09 MCH 31.1 pg (27-33) 03/04/24 21:09 MCHC 34.0 g/dL (30-55) 03/04/24 21:09 RDW 11.9 % (12.1-15.1) L 03/04/24 21:09 Plt Count 296 10^3/cmm (157-399) 03/04/24 21:09 MPV 9.9 fL (7.4-10.4) 03/04/24 21:09 Neut % (Auto) 63.6 % 03/04/24 21:09 Lymph % (Auto) 29.1 % 03/04/24 21:09 [place] % (Auto) 5.2 % 03/04/24 21:09 Eos % (Auto) 1.0 % 03/04/24 21:09 Baso % (Auto) 0.8 % 03/04/24 21:09 Neut # (Auto) 6.37 10^3/uL (1.8-7.7) 03/04/24 21:09 Lymph # (Auto) 2.9 10^3/uL (0.8-4.8) 03/04/24 21:09 [place] # (Auto) 0.5 10^3/uL (0.2-0.9) 03/04/24 21:09 Eos # (Auto) 0.1 10^3/uL (0.0-0.8) 03/04/24 21:09 Baso # (Auto) 0.1 10^3/uL (0.0-0.1) 03/04/24 21:09 Nucleated RBC % (auto) 0 % 03/04/24 21:09 Nucleated RBCs # 0.0 /100WBC 03/04/24 21:09 Sodium 140 mmol/L (136-145) 03/04/24 21:09 Potassium 4.4 mmol/L (3.5-5.1) 03/04/24 21:09 Chloride 102 mmol/L (98-107) 03/04/24 21:09 Carbon Dioxide 28 mmol/L (22-29) 03/04/24 21:09 Anion Gap 14.4 (5-19) 03/04/24 21:09 BUN 11 mg/dL (6-20) 03/04/24 21:09 Creatinine 0.7 mg/dL (0.5-0.9) 03/04/24 21:09 GFR Calculation 93.6 mL/min (90-130) 03/04/24 21:09 Glucose 99 mg/dL (65-115) 03/04/24 21:09 Calculated Osmolality 289 mOsm/kg (285-295) 03/04/24 21:09 Calcium 9.7 mg/dL (8.5-10.5) 03/04/24 21:09 Total Bilirubin 0.2 mg/dL (0.15-1.2) 03/04/24 21:09 AST 11 U/L (0-32) 03/04/24 21:09 ALT 9 U/L (0-33) 03/04/24 21:09 Alkaline Phosphatase 74 U/L (35-105) 03/04/24 21:09 Total Protein 7.9 g/dL (6.6-8.7) 03/04/24 21:09 Albumin 4.4 g/dL (3.5-5.2) 03/04/24 21:09 Globulin 3.5 g/dL (1.3-4.6) 03/04/24 21:09 HCG, Qual Negative (Negative) 03/04/24 21:09 No radiology studies performed this visit Discharge Plan Discharge Patient Disposition: Home Clinical Impression: Generalized seizure Condition: Stable Prescriptions: New Keppra 500 mg tablet 500 mg PO BID Qty: 60 0RF No Action Reglan 10 mg tablet 10 mg PO Q6H PRN (Reason: nausea and vomiting) Qty: 20 0RF Discharge Orders: Discharge ED (Routine); Ordered 03/04/24 Ordered By: William Muñiz Discharge Diet: Advance as tolerated Discharge Activity: Resume usual activity Patient Instructions: Seizures Coding Level of Care Code ED Speeder Hand for Uday Bryant
[2024-03-04] MEDS: levETIRAcetam 500 mg Tablet 1500 MG PO (21:14)
[2024-03-04 21:16] LABS: Basophils # 0.1 10^3/uL (0.0-0.1); Basophils % 0.8 %; Eosinophils # 0.1 10^3/uL (0.0-0.8); Hematocrit 41.5 % (36-47); Lymphocytes # 2.9 10^3/uL (0.8-4.8); Lymphocytes % 29.1 %; Mean Corpuscular Hemoglobin 31.1 pg (27-33); Mean Corpuscular Volume 91.6 fl (85-98); Mean Platelet Volume 9.9 fL (7.4-10.4); Monocytes # 0.5 10^3/uL (0.2-0.9); Monocytes % 5.2 %; Neutrophils # 6.37 10^3/uL (1.8-7.7); Neutrophils % 63.6 %; Nucleated Red Blood Cells % 0 %; Platelet Count 296 10^3/cmm (157-399); Red Blood Count 4.53 10^6/uL (3.85-5.65); Red Cell Distribution Width 11.9 % (12.1-15.1); White Blood Count 10.02 10^3/uL (3.29-11.43)
[2024-03-04 21:34] LABS: Alanine Aminotransferase 9 U/L (0-33); Albumin Level 4.4 g/dL (3.5-5.2); Alkaline Phosphatase 74 U/L (35-105); Anion Gap 14.4 (5-19); Aspartate Amino Transferase 11 U/L (0-32); Blood Urea Nitrogen 11 mg/dL (6-20); Calcium 9.7 mg/dL (8.5-10.5); Carbon Dioxide 28 mmol/L (22-29); Chloride 102 mmol/L (98-107); Creatinine Clr Calc Pharmacy 88.3507; Globulin 3.5 g/dL (1.3-4.6); Glomerular Filtration Rate 93.6 mL/min (90-130); Glucose 99 mg/dL (65-115); Osmolality Calculated 289 mOsm/kg (285-295); Potassium 4.4 mmol/L (3.5-5.1); Sodium 140 mmol/L (136-145); Total Bilirubin 0.2 mg/dL (0.15-1.2); Total Protein 7.9 g/dL (6.6-8.7)
[2024-03-04 21:38] VITALS: BP 114/93; PULSE 74; RESP 16; O2SAT 100
[2024-03-04 21:42] LABS: HCG Qualitative Urine. Negative (Negative)
[2024-03-04] MEDS: ibuprofen 600 mg Tablet PO (22:05)
[2024-03-04 22:06] VITALS: BP 122/89; PULSE 72; RESP 16; O2SAT 99
== END 2024-03-04 22:08 | disposition home or self-care (01) ==
PROVIDERS: Emergency Provider Emergency Medicine
DX: G40.409 Other generalized epilepsy and epileptic syndromes, not intractable, without status epilepticus (principal)
CPT/HCPCS: 80053; 81025; 85025; 99283